=== PATIENT | female | born 1990 | race Caucasian/White ===

== ENCOUNTER 2016-09-04 19:08 | Observation (INO) | payer MEDICAID ==
--- NOTE | 2016-09-04 19:37 | EDPHY ---
[id number] vomiting, constipation HISTORY OF PRESENT ILLNESS: this patient very pleasant 26-year-old female she does have significant past medical history for dwarfism, she recently on August 23 had a right hip replacement. She has been taking narcotic pain medicine for this she recently ran out of her Dilaudid she is requesting that I refill her Dilaudid however she came to the emergency room this evening as she is having constipation with nausea vomiting. She tells me she did have a bowel movement that was normal at 11:00 a.m.. However she took MiraLax to help with his bowel movement that made her very nauseous and she has had multiple episodes of nonbilious nonbloody vomiting. She presents to the emergency room due to nausea and constipation. She denies significant abdominal pain. Past Medical History:Dwarfism, constipation, chronic pain Past Surgical History: Rectal prolapse surgery, bilateral hip replacements, hernia repair Social History: denies use drugs alcohol tobacco products Family History: Noncontributory ROS REVIEW OF SYSTEMS: A comprehensive 10 point review of systems is otherwise negative aside from elements mentioned in the history of present illness. Exam Constitutional triage nursing summary reviewed, vital signs reviewed, awake/ alert. Eyes normal conjunctivae and sclera, EOMI, PERRLA. HENT normal inspection, atraumatic, moist mucus membranes, no epistaxis, neck supple/ no meningismus, no raccoon eyes. Respiratory clear to auscultation bilaterally, normal breath sounds, no respiratory distress, no wheezing. Cardiovascular rate normal, regular rhythm, no murmur, no edema, distal pulses normal. Gastrointestinal soft, non-tender, no rebound, no guarding, [place] bowel sounds, no distension, no pulsatile mass. Genitourinary no CVA tenderness. Musculoskeletal no midline vertebral tenderness, full range of motion, no calf swelling, no tenderness of extremities, no meningismus, good pulses, neurovascularly intact. Skin pink, warm, & dry, no rash, skin atraumatic. Neurologic awake, alert and oriented x 3, AAOx3, moves all 4 extremities equally, motor intact, sensory intact, CN II-XII intact, normal cerebellar, normal vision, normal speech. Psychiatric normal mood/affect. Heme/Lymph/Immune no lymphadenopathy. Differential diagnosis includes but is not limited to and in no particular order : Bowel obstruction, appendicitis, gallbladder disease, diverticulitis, colitis , enteritis, perforated viscus, gastritis, GERD, esophagitis, urinary tract infection, pyelonephritis, kidney stones Medical Decision Making:This patient had an IV established be medicated with IV fluids, IV nausea medicine and pain medicine. She will have a KUB to rule out small-bowel obstruction. We will check blood work. And will re-evaluate. Re-evaluation: ED x-ray KUB: This shows multiple air-fluid levels concerning for SBO. Image interpreted by myself CT scan of the abdomen pelvis with IV contrast. The results of the study are this shows an ileus, no evidence of small-bowel obstruction or high-grade small- bowel obstruction.. The study was read by Dr. Retana. I viewed the images myself on the PACS system. 2225: this patient has a significant ileus with ongoing nausea vomiting abdominal pain. Due to this patient needed to the hospital service for bowel rest, IV hydration nausea and pain control. No evidence of SBO. I did consult Dr. Sanchez will follow along. He did recommend this patient be admitted to the hospitalist service. I did update the patient she is agreeable for this plan. Source: Patient - Personal History LMP (Females 10-55): 1-7 Days Ago Current Tetanus/Diphtheria Vaccine: Unsure - Medical/Surgical History Hx Asthma: No Hx Chronic Respiratory Disease: No Hx Diabetes: No Hx Cardiac Disease: No Hx Renal Disease: No Hx Cirrhosis: No Hx Alcoholism: Yes Hx HIV/AIDS: No Hx Splenectomy or Spleen Trauma: No Other PMH: rectal prolapse 9 days ago surgery. hipdysplasia c dwarfism - Social History Smoking Status: Never smoked Constitutional: Initial Vital Signs Temperature (C) 36.7 C 09/04/16 19:21 Heart Rate 123 H 09/04/16 19:21 Respiratory Rate 17 09/04/16 19:21 Blood Pressure 125/91 H 09/04/16 19:21 O2 Sat (%) 98 09/04/16 19:21 O2 Delivery Mode Room Air Allergies/Adverse Reactions: adhesive tape Allergy (Verified 02/02/16 08:05) removes skin banana Allergy (Verified 02/02/16 08:05) Wheezing anesthesia Allergy (Unknown, Uncoded 04/23/12 16:48) Home Medications: Medication Instructions Recorded Acetaminophen [Tylenol 325mg (*)] 325 mg PO Q8HRS PRN #0 tab 09/05/16 Acetaminophen [Tylenol 325mg (*)] 650 mg PO Q4HRS PRN #0 tab 09/05/16 Aspirin [Aspirin 81mg (*)] 81 mg PO DAILY 09/05/16 Diazepam [Valium 5 MG (*)] 5 mg PO TID PRN 09/05/16 Docusate Sodium [Colace 100 MG (*)] 100 mg PO BID #0 cap 09/05/16 HYDROmorphone HCL [Dilaudid 4 mg 6 mg PO Q4HRS PRN #20 tab 09/05/16 (*)] Morphine Sulfate [Ms Contin] 15 mg PO Q8HRS 09/05/16 Polyethylene Glycol 3350 [Miralax 17 gm PO DAILY #0 pkt 09/05/16 17 gm (*)] Medical Decision Making - Data Points Laboratory Results: Laboratory Results 09/04/16 19:56 09/04/16 19:56 Medications Given: Discontinued Medications Diazepam (Valium) 5 mg PO TID PRN PRN Reason: Spasms Stop: 03/04/17 10:29 Last Admin: 09/05/16 11:19 Dose: 5 mg Docusate Sodium (Colace) 100 mg PO BID [facility] Stop: 03/04/17 08:59 Last Admin: 09/05/16 08:56 Dose: 100 mg Enoxaparin Sodium (Lovenox) 30 mg SC DAILY [facility] Stop: 03/04/17 08:59 Last Admin: 09/05/16 08:56 Dose: 30 mg Hydromorphone HCl (Dilaudid) 1 mg IVP EDNOW ONE Stop: 09/04/16 19:45 Last Admin: 09/04/16 20:00 Dose: 1 mg Hydromorphone HCl (Dilaudid) 1 mg IVP EDNOW ONE Stop: 09/04/16 20:45 Last Admin: 09/04/16 21:42 Dose: 1 mg Hydromorphone HCl (Dilaudid) 0.5 mg IVP Q4HRS PRN PRN Reason: Pain, Severe Unable to Take PO Stop: 09/14/16 23:53 Last Admin: 09/05/16 03:42 Dose: 0.5 mg Hydromorphone HCl (Dilaudid) 6 mg PO Q4HRS PRN PRN Reason: Pain, Severe Able to Take PO Stop: 09/14/16 23:55 Last Admin: 09/05/16 13:51 Dose: 6 mg Hydromorphone HCl (Dilaudid) 1 mg IVP Q4 PRN PRN Reason: Pain, Severe Unable to Take PO Stop: 09/15/16 03:49 Last Admin: 09/05/16 10:46 Dose: 1 mg Hydromorphone HCl (Dilaudid) 1 mg IVP ONCE ONE Stop: 09/05/16 11:12 Last Admin: 09/05/16 11:20 Dose: 1 mg Sodium Chloride (Ns) 1,000 mls @ 0 mls/hr IV ONCE ONE PRN Reason: Wide Open Stop: 09/04/16 19:45 Last Admin: 09/04/16 20:02 Dose: 1,000 mls Sodium Chloride (Ns) 1,000 mls @ 75 mls/hr IV CONT CARIE Stop: 09/06/16 13:04 Last Admin: 09/05/16 00:28 Dose: 1,000 mls Morphine Sulfate (Ms Contin/Oramorph) 15 mg PO BID CARIE Stop: 09/15/16 08:59 Last Admin: 09/05/16 09:05 Dose: 15 mg Morphine Sulfate (Ms Contin/Oramorph) 15 mg PO Q8HRS CARIE Stop: 09/15/16 13:59 Last Admin: 09/05/16 13:50 Dose: 15 mg Ondansetron HCl (Zofran) 4 mg IVP EDNOW ONE Stop: 09/04/16 19:45 Last Admin: 09/04/16 20:00 Dose: 4 mg Polyethylene Glycol (Miralax) 17 gm PO DAILY [facility] Stop: 03/04/17 08:59 Last Admin: 09/05/16 08:56 Dose: 17 gm Promethazine HCl (Phenergan Injection) 6.25 mg IVP EDNOW ONE Stop: 09/04/16 22:01 Last Admin: 09/04/16 22:06 Dose: 6.25 mg Departure - Departure Disposition: [facility] Acute Clinical Impression: Ileus Condition: Fair
[2016-09-04] MEDS ORDERED: HYDROmorphONE/DILAUDID 1 MG/ML SYR IVP ONE ×2 (19:44→20:44)
[2016-09-04] MEDS ORDERED: ONDANSETRON 4 MG/2 ML VIAL IVP ONE (19:44)
[2016-09-04] MEDS ORDERED: NS 1,000 ML IV ONE (19:44)
[2016-09-04 20:09] LABS: % IMMATURE GRANULYOCYTES 0.3 % (0.0-1.1); ABSOLUTE IMMATURE GRANULOCYTES 0.04 10^3/uL (0.00-0.10); ADD DIFF? NO; ADD MORPH? NO; ADD SCAN? NO; ATYPICAL LYMPHOCYTE FLAG 0 (0-99); FRAGMENT RBC FLAG 20 (0-99); HEMATOCRIT 29.3 % (38.0-47.0); HEMOGLOBIN 9.8 g/dL (12.6-16.3); LEFT SHIFT FLG 0 (0-99); LIPEMIA HEMOLYSIS FLAG 80 (0-99); MEAN CELL HEMOGLOBIN 29.2 pg (27.9-34.1); MEAN CELL HEMOGLOBIN CONCENTR. 33.4 g/dL (32.4-36.7); MEAN CELL VOLUME 87.2 fL (81.5-99.8); MEAN PLATELET VOLUME 8.4 fL (8.7-11.7); PLATELET CLUMPS FLAG 0 (0-99); RED BLOOD CELL COUNT 3.36 10^6/uL (4.18-5.33); RED CELL DISTRIBUTION WIDTH 14.6 % (11.5-15.2)
[2016-09-04 20:14] LABS: PLATELET COUNT 1232 10^3/uL (150-400)
[2016-09-04 20:21] LABS: ALANINE AMINOTRANSFERASE 37 IU/L (9-52); ALBUMIN 3.7 g/dL (3.5-5.0); ALKALINE PHOSPHATASE 113 IU/L (38-126); ANION GAP 14 mEq/L (8-16); ASPARTATE AMINOTRANSFERASE 41 IU/L (14-46); BILIRUBIN,TOTAL 0.5 mg/dL (0.1-1.4); BILIRUBIN-CONJUGATED 0.4 mg/dL (0.0-0.5); BILIRUBIN-UNCONJUGATED 0.1 mg/dL (0.0-1.1); CALCIUM 8.9 mg/dL (8.5-10.4); CARBON DIOXIDE 24 mEq/l (22-31); CHLORIDE 101 mEq/L (97-110); CREATININE 0.4 mg/dL (0.6-1.0); GLOMERULAR FILTRATION RATE > 60; GLUCOSE 107 mg/dL (70-100); POTASSIUM 3.9 mEq/L (3.5-5.2); SODIUM 139 mEq/L (134-144); TOTAL PROTEIN 7.1 g/dL (6.3-8.2)
[2016-09-04 20:39] LABS: PLATELET ESTIMATE INCREASED (ADEQ)
--- NOTE | 2016-09-04 20:40 | DX ---
AP Upright Abdomen Reason for examination: Abdominal pain in a 26-year-old female who is one week postoperative hip surg elio. Comparison to the previous study February 09, 2016. Findings: There is a paucity of gas in the colon. Multiple small air-fluid levels are seen which coul d reflect developing small bowel mechanical obstruction or ileus. No free air is seen. Postoperative changes of bilateral hip arthroplasties are seen. Spinal degenerative changes are noted. Impression: Abnormal bowel gas pattern could reflect either ileus or early mechanical small bowel obs truction.
[2016-09-04] MEDS ORDERED: IOPAMIDOL (ISOVUE-300) 100 ML BTL IV ONE (20:50)
[2016-09-04 21:08] LABS: COLOR PALE YELLOW; LEUKOCYTE ESTERASE,URINE NEGATIVE (NEGATIVE); NITRITE,URINE NEGATIVE (NEGATIVE)
[2016-09-04] MEDS ORDERED: PROMETHAZINE HCL 25 MG/ML INJ IVP ONE (22:00)
--- NOTE | 2016-09-04 22:07 | CT ---
CT Scan of the Abdomen and Pelvis With Contrast Indication: Nausea, vomiting and diffuse abdominal pain in a 26-year-old female who is postoperative recent hip surgery. Technique: Multidetector CT images of the abdomen and pelvis were obtained following the uneventful i ntravenous administration of 80 mL Isovue-300 contrast. Dilute rectal contrast was also administered. Dose reduction techniques were utilized. Abdomen: Lung bases: Normal. No pleural fluid. Multiple fluid-filled mildly dilated small bowel loops are seen. Contrast extends in the colon to the mid transverse region. The colon proximal to this is mildly dilated and fluid-filled. No free air is identified. No significant ascites is seen. Liver: Normal. Biliary system: Normal gallbladder. No intra- or extrahepatic dilatation. Spleen: Normal. Pancreas: Normal. Adrenals: Normal. Kidneys: No obstruction or solid masses. Abdominal Aorta: No aneurysm. CT Pelvis Findings: Fluid-filled loops of small bowel are noted. No free air is seen. Contrast which was administered rectally passes cephalad to the level of the transverse colon. No significant divert icular disease is identified. Postoperative changes of bilateral hip replacements are noted. Also, nu merous vertebral body compression deformities are seen. Impression: 1. Multiple dilated fluid-filled bowel loops primarily small bowel and also involving the cecum and a scending colon most suggestive of ileus rather than mechanical obstruction. 2. See above report for additional findings. A preliminary report was called to Dr. Paramjit Dia at 2150 hours in the Emergency Department.
[2016-09-04] MEDS ORDERED: NS 1,000 ML IV SCH (23:45)
[2016-09-04] MEDS ORDERED: ONDANSETRON 4 MG/2 ML VIAL IVP PRN (23:54)
[2016-09-04] MEDS ORDERED: ONDANSETRON DISINTEGRATING 4 MG TAB PO PRN (23:54)
[2016-09-04] MEDS ORDERED: ACETAMINOPHEN 325 MG TAB PO PRN (23:54)
--- NOTE | 2016-09-05 00:25 | GHP ---
[f rep st] HISTORY AND PHYSICAL DATE OF ADMISSION: 09/04/2016 CHIEF COMPLAINT: Nausea, vomiting. HISTORY OF PRESENT ILLNESS: This is a 26-year-old female who has a history of dwarfism as well as so me hip dysplasia. She had a fairly extensive hip replacement-type surgery done about a week ago. Maggie briscoe has been taking a significant amount of narcotics and has not had bowel movements since. Today, maggie briscoe took some magnesium citrate and developed nausea/vomiting, as well as crampy abdominal pain. She d id end up with a fairly large bowel movement afterwards though. She then had a CT scan with contrast , including rectal contrast, and had another large bowel movement after that. She is feeling better at this point. She denies any nausea, but she received some Zofran lately. She has also received so me Dilaudid. She is hungry and wants to eat. REVIEW OF SYSTEMS: A 10-point review of systems obtained and other than that stated above was negati ve. PAST MEDICAL HISTORY: 1. Dwarfism. 2. Chronic constipation. PAST SURGICAL HISTORY: 1. Rectal prolapse surgery that was also complicated by rectal stricture requiring surgery. 2. Bilateral hip replacement. 3. Hernia repair. SOCIAL HISTORY: She says she is an alcoholic and she quit alcohol several years ago and occasional t obacco. FAMILY HISTORY: Reviewed and noncontributory. PHYSICAL EXAMINATION: VITAL SIGNS: Afebrile, blood pressure is 114/76, heart rate 103, oxygen satur ation 96% on room air. GENERAL: The patient is well developed, with obvious dwarfism, but no appare nt distress. HEENT: Nonicteric sclerae. Extraocular movements intact. Moist mucous membranes. NE CK: Supple without thyromegaly. LUNGS: Good effort. Clear to auscultation bilaterally. CARDIOVAS CULAR: Regular rate and rhythm. No murmurs, gallops. ABDOMEN: Positive bowel sounds. Soft, nonte nder, nondistended. No hepatosplenomegaly. EXTREMITIES: No clubbing, cyanosis, or edema. SKIN: W ithout rash. Warm, dry, intact. NEUROLOGIC: Alert and oriented x3. Moving all 4 extremities equal ly. PSYCHIATRIC: Normal affect. LABORATORY DATA: White blood cell count is 11, hemoglobin 9.8, platelets are 1232. Sodium 139, pota ssium 3.9, BUN is 6, creatinine 0.4, beta HCG is negative. CT scan shows dilated fluid-filled bowel loops of the small bowel, but also involving cecum and ascending colon, suggestive of ileus rather th an mechanical obstruction. ASSESSMENT: A 26-year-old female presenting with ileus probably related to narcotic use. PLAN: 1. Ileus. The patient did have several significant bowel movements and her symptoms seemed to impro ve. We will start her on a diet and see how she does. Will start some scheduled MiraLAX as well, al becky with the Dulcolax that she had been taking. She is on quite a bit of narcotics and thus that is probably the cause. 2. Recent hip replacement on chronic narcotics. Will continue her narcotics as above, but she is in structed that she probably should just start weaning them. /[id number]/MODL
[2016-09-05] MEDS: HYDROmorphONE/DILAUDID 1 MG/ML SYR IVP PRN ×2 (00:28→03:42)
[2016-09-05] MEDS ORDERED: HYDROmorphONE/DILAUDID 4 MG TAB ONE (00:51)
[2016-09-05] MEDS: HYDROmorphONE/DILAUDID 4 MG TAB PO PRN ×3 (00:54→13:51)
[2016-09-05 02:26] LABS: % SATURATION 8 % (20-55); TOTAL IRON BINDING CAPACITY 261 ug/dL (260-490)
[2016-09-05 02:52] LABS: FERRITIN - BCH 65.8 ng/mL (6.2-264.0)
[2016-09-05] MEDS: HYDROmorphONE/DILAUDID 2 MG/ML SYR IVP PRN ×2 (04:17→10:46)
[2016-09-05 05:32] LABS: % IMMATURE GRANULYOCYTES 0.4 % (0.0-1.1); ABSOLUTE IMMATURE GRANULOCYTES 0.04 10^3/uL (0.00-0.10); ADD DIFF? NO; ADD MORPH? NO; ADD SCAN? NO; ATYPICAL LYMPHOCYTE FLAG 20 (0-99); FRAGMENT RBC FLAG 0 (0-99); HEMATOCRIT 25.8 % (38.0-47.0); HEMOGLOBIN 8.5 g/dL (12.6-16.3); LEFT SHIFT FLG 0 (0-99); LIPEMIA HEMOLYSIS FLAG 80 (0-99); MEAN CELL HEMOGLOBIN 29.1 pg (27.9-34.1); MEAN CELL HEMOGLOBIN CONCENTR. 32.9 g/dL (32.4-36.7); MEAN CELL VOLUME 88.4 fL (81.5-99.8); MEAN PLATELET VOLUME 8.5 fL (8.7-11.7); PLATELET CLUMPS FLAG 0 (0-99); RED BLOOD CELL COUNT 2.92 10^6/uL (4.18-5.33); RED CELL DISTRIBUTION WIDTH 14.6 % (11.5-15.2)
[2016-09-05 05:38] LABS: PLATELET COUNT 1114 10^3/uL (150-400)
[2016-09-05 05:57] LABS: ANION GAP 8 mEq/L (8-16); CALCIUM 8.5 mg/dL (8.5-10.4); CARBON DIOXIDE 22 mEq/l (22-31); CHLORIDE 109 mEq/L (97-110); CREATININE 0.5 mg/dL (0.6-1.0); GLOMERULAR FILTRATION RATE > 60; GLUCOSE 103 mg/dL (70-100); POTASSIUM 4.3 mEq/L (3.5-5.2); SODIUM 139 mEq/L (134-144)
[2016-09-05 06:02] LABS: PLATELET ESTIMATE INCREASED (ADEQ)
[2016-09-05 08:39] VITALS: BP 114/74; PULSE 121; RESP 18; TEMP 98; O2SAT 96
[2016-09-05] MEDS ORDERED: morphINE SR 15 MG TAB PO SCH ×2 (09:00→14:00)
[2016-09-05] MEDS ORDERED: DOCUSATE SODIUM 100 MG CAP PO SCH (09:00)
[2016-09-05] MEDS ORDERED: morphINE SR 30 MG TAB PO SCH (09:00)
[2016-09-05] MEDS ORDERED: ENOXAPARIN 30 MG/0.3 ML SYR SC SCH (09:00)
[2016-09-05] MEDS ORDERED: POLYETHYLENE GLYCOL 3350 17 GM PKT PO SCH (09:00)
[2016-09-05] MEDS ORDERED: ACETAMINOPHEN 325 MG TAB PO PRN (10:30)
[2016-09-05] MEDS ORDERED: DIAZEPAM 5 MG TAB PO PRN (10:30)
[2016-09-05] MEDS ORDERED: oxyCODONE IR 5 MG TAB PO PRN (10:30)
[2016-09-05] MEDS ORDERED: HYDROmorphONE/DILAUDID 1 MG/ML SYR IVP ONE (11:11)
--- NOTE | 2016-09-05 15:12 | GDS ---
[f rep st] DISCHARGE SUMMARY DISCHARGE DIAGNOSES: 1. Ileus. 2. Recent hip replacement, on chronic narcotics. 3. History of dwarfism. 4. Chronic constipation. 5. Thrombocytosis, likely reactive in the setting of ileus and pain. HOSPITAL COURSE AND STAY BY PROBLEM: Ileus: Patient was placed on observation, where she was treate d supportively for her nausea and vomiting with antiemetics and IV fluids. On hospital day #1, the p atfrank is tolerating a regular diet and had a bowel movement. She continues to have significant pain in her right hip. Prior to discharge, I did talk with her orthopedic surgeon at [facility], wh o thought it was okay to remove her surgical светлана. Her surgeon also recommended that we refill he r Dilaudid since she has been having quite a bit of postoperative pain, which is reasonable given the extensiveness of her recent right hip replacement. PHYSICAL EXAM ON DAY OF DISCHARGE: VITAL SIGNS: Blood pressure 114/74, pulse 121, respiratory rate 18, O2 sat 96% on room air, temperature afebrile. GENERAL: No acute distress. HEART: S1, S2. Tac hycardic. LUNGS: Clear. ABDOMEN: Soft. EXTREMITIES: No edema. Right hip wound is cool to touch with no signs of infection. Wound is closed. DISCHARGE MEDICATIONS: Please refer to discharge medication reconciliation in [facility] for full deta ils. Below is a preliminary list. Medication refills given: Dilaudid 4 mg tablets, #24 prescribed, to be taken 1 to 1-1/2 tablets ever y 4 hours as needed for pain. All other home medications were continued, which include aspirin 81 mg daily, MS Contin 15 mg p.o. ev elio 8 hours, Valium 5 mg p.o. t.i.d. p.r.n. muscle spasm, Colace 100 mg b.i.d., Tylenol as needed. DISCHARGE INSTRUCTIONS: The patient was discharged from the hospital, where she was encouraged to fo llow up with her pain clinic, as well as with her orthopedic surgeon as soon as possible. /[id number]/MODL
[2016-09-06] MEDS ORDERED: ASPIRIN 81 MG CHEWABLE TAB PO SCH (09:00)
== END 2016-09-05 14:51 | disposition home or self-care (01) ==
LOC: F1N 23:59
PROVIDERS: ADMIT Internal Medicine; ATTEND Family Medicine
DX: K52.9 Noninfective gastroenteritis and colitis, unspecified (principal); F11.20 Opioid dependence, uncomplicated; K59.03 Drug induced constipation; T40.605A Adverse effect of unspecified narcotics, initial encounter; E34.3 Short stature due to endocrine disorder; D47.3 Essential (hemorrhagic) thrombocythemia; Z96.643 Presence of artificial hip joint, bilateral
CPT/HCPCS: 74000; 74177; 96361; 96374; 96375; 96376; 99285; G0378; J1170; J1650; J2405; J2550; Q9967